=== PATIENT | female | born 1995 | race Two or more races ===

== ENCOUNTER 2020-08-23 04:29 | Emergency (ER) | payer MEDICAID ==
[~2020-08-23] VITALS: Ht 175.3 cm; Wt 110.4 kg
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
--- NOTE | 2020-08-23 05:14 | NUR ---
LAB AT BEDSIDE
--- NOTE | 2020-08-23 05:44 | NUR ---
PT RETURNED FROM CT
[2020-08-23 06:04] VITALS: BP 133/71
--- NOTE | 2020-08-23 06:12 | NUR ---
Patient given discharge instructions and they have confirmed that they understand the instructions. Patient ambulatory with steady gait.
== END 2020-08-23 06:20 | disposition home or self-care (01) ==
LOC: ED 05:20
DX: S09.90XA Unspecified injury of head, initial encounter (principal); Y04.8XXA Assault by other bodily force, initial encounter; Y93.89 Activity, other specified; Y92.488 Other paved roadways as the place of occurrence of the external cause; Y99.8 Other external cause status
CPT/HCPCS: 36415; 70450; 84703; 99284